=== PATIENT | female | born 1955 ===

== ENCOUNTER 2023-05-15 11:53 | Outpatient (CLI) | payer OTHER ==
--- NOTE | 2023-05-15 12:50 | XRAY Report ---
PROCEDURE: Chest 2 View X-Ray INDICATIONS: ASTHMA/COUGH TECHNIQUE: 2 views of the chest were acquired. COMPARISON: None. FINDINGS: Surgical changes and devices: None. Lungs and pleura: Right lower lobe pneumonia. Mediastinum: Mediastinal contours appear normal. Heart size is normal. Bones and chest wall: No suspicious bony lesions. Overlying soft tissues appear unremarkable. IMPRESSION: Right lower lobe pneumonia. Reviewed by: Prem Gray on 05/15/2023 12:48 PM PDT Approved by: Prem Gray on 05/15/2023 12:48 PM PDT Station ID: [id number]
== END 2023-05-15 23:59 | disposition home or self-care (01) ==
LOC: DI.S 11:53
PROVIDERS: ATTEND Physician Assistant Medical
DX: J45.901 Unspecified asthma with (acute) exacerbation (principal); J18.9 Pneumonia, unspecified organism